=== PATIENT | female | born 1980 | race Caucasian/White ===

== ENCOUNTER → 2022-12-11 | Outpatient (CLI) | payer OTHER | LOC: MC.RAD 07:55 | DX: N60.02 Solitary cyst of left breast (principal); R92.0 Mammographic microcalcification found on diagnostic imaging of breast ==

== ENCOUNTER → 2023-01-10 | Outpatient (CLI) | payer OTHER | LOC: MC.RAD 06:57 | DX: R92.1 Mammographic calcification found on diagnostic imaging of breast (principal); N63.20 Unspecified lump in the left breast, unspecified quadrant; Z90.11 Acquired absence of right breast and nipple ==

== ENCOUNTER → 2024-01-08 | Outpatient (CLI) | payer OTHER | LOC: MC.RAD 08:56 | DX: Z12.31 Encounter for screening mammogram for malignant neoplasm of breast (principal) ==